=== PATIENT | female | born 1990 ===

== ENCOUNTER 2022-11-07 07:38 | Inpatient (IN) | payer OTHER ==
[2022-11-07] MEDS ORDERED: PENICILLIN G POTASSIUM 5,000,000 UNIT in DEXTROSE 5% IN WATER 100 ML IVPB STA ×2 (08:01)
[2022-11-07] MEDS ORDERED: TERBUTALINE 1 MG/ML VIAL SQ PRN (08:01)
[2022-11-07] MEDS ORDERED: LIDOCAINE 0.5% (PF) 5 MG/ML (50 ML SDV) SQ PRN (08:01)
[2022-11-07] MEDS ORDERED: LACTATED RINGERS 1,000 ML IV SCH (08:15)
--- NOTE | 2022-11-07 09:02 | P.HPOB ---
History of Present Illness H&P Date: 11/07/22 Chief Complaint: Labor This is a 32 year old woman who arrived via EMS on in advanced active labor. She has received no care. She is uncertain about estimated due date and reports having discontinued contraception in December 2021. She complains of significant pain and contractions starting 2-3 hours ago. She now is complaining of urge to push. When she is assessed in labor and delivery triage cervix is found to be 8 cm dilated and bedside ultrasound reveals fetus in the vertex presentation. Abdomen appears gravid with a fundal height of approximately 27-30 weeks gestation. She denies rupture of membranes or heavy vaginal bleeding. She is admitted in labor. Medications and Allergies Home Medications Medication Instructions Recorded Confirmed Type No Known Home Medications 11/07/22 11/07/22 History Allergies Allergy/AdvReac Type Severity Reaction Status Date / Time No Known Allergies Allergy Verified 11/07/22 07:50 Exam Intake and Output 11/06/22 11/07/22 11/07/22 22:59 06:59 14:59 Other: Weight 54.431 kg Assessment and Plan (1) Insufficient care Current Visit: Yes Status: Acute Code(s): O09.30 - SUPRVSN OF PREG W INSUFFICIENT ANTENAT CARE, UNSP TRIMESTER SNOMED Code(s): 6517106017155 (2) Spontaneous onset of labor Current Visit: Yes Status: Acute Code(s): ABT2778 - SNOMED Code(s): 29782321
--- NOTE | 2022-11-07 09:04 | P.PROBDLV ---
Vaginal Delivery Note - . Vaginal Delivery Note: Findings: Male infant in the vertex presentation with a nuchal cord 1. Apgars of 7 at 1 minute and 9 at 5 minutes weighing 2040 g, 4 lbs. 8 oz. Intact, three-vessel cord placenta with an accessory lobe. Bilateral labial abrasions. EBL 100 mL's. Delivery summary: This is a 32-year-old 1 para 0 woman with an unknown estimated due date and the last menstrual period of approximately any time between December and February 2022. She presents with spontaneous onset of regular contractions. Upon presentation to labor and delivery triage she was found to be 8 cm dilated and bedside ultrasound revealed a fetus in the vertex presentation. Assessment at the bedside was approximately 27-30 weeks gestation based on maternal uterine size. She was transported to a labor room at which time she was completely dilated and had spontaneous rupture of membranes with clear fluid. She had strong urge to push. She commenced pushing with good maternal effort. She did have deep variable decelerations during the second stage however pushed quite effectively. The pediatric team was in attendance. She did deliver to [facility] and the perineum was infused with lidocaine. With additional maternal effort the head delivered from the right occiput anterior position. There was a tight nuchal cord and the rest the infant was delivered through. The nose and mouth were bulb suctioned and the cord was clamped and cut. was taken rapidly to the nursery. Patient received Pitocin following delivery of the infant and delivered an intact, three-vessel cord placenta that appears to have an accessory lobe. The uterus was massaged and was noted to be firm. She had minimal vaginal bleeding. The vagina was inspected and bilateral labial lacerations were noted however were not actively bleeding. All counts were correct.
[2022-11-07 09:19] LABS: Basophils # (A) 0.1 k/uL (0-0.2); Basophils % (A) 0 %; Eosinophils % (A) 0 %; HCT 38.7 % (34.0-46.0); HGB 13.1 gm/dL (11.4-16.0); Lymphocytes # (A) 2.2 k/uL (1.0-4.8); Lymphocytes % (A) 12 %; MCH 34.4 pg (25.0-35.0); MCHC 33.8 g/dL (31.0-37.0); MCV 101.9 fL (80.0-100.0); Mean Platelet Volume 8.2; Monocytes # (A) 0.8 k/uL (0-1.0); Monocytes % (A) 4 %; Neutrophils # (A) 16.1 k/uL (1.3-7.7); Neutrophils % (A) 83 %; Platelet Count 318 k/uL (150-450); WBC 19.4 k/uL (3.8-10.6)
[2022-11-07] MEDS ORDERED: HYDROCORTISONE 2.5% RECTAL CREAM 30 GM TUBE RECTAL PRN (09:38)
[2022-11-07] MEDS ORDERED: BENZOCAINE/MENTHOL SPRAY 1 GM/SPRAY AEROSOL TOPICAL PRN (09:38)
[2022-11-07] MEDS ORDERED: LANOLIN CREAM 5 GM TUBE TOPICAL PRN (09:38)
[2022-11-07] MEDS ORDERED: ACETAMINOPHEN TAB 325 MG TAB PO PRN (09:38)
[2022-11-07] MEDS ORDERED: ZOLPIDEM 5 MG TAB PO PRN (09:38)
[2022-11-07] MEDS ORDERED: SIMETHICONE 80 MG CHEWABLE PO PRN (09:38)
[2022-11-07] MEDS ORDERED: IBUPROFEN 600 MG TAB PO PRN (09:38)
[2022-11-07] MEDS ORDERED: OXYTOCIN 30 UNITS/500 ML NS 30 UNIT in SALINE 1 500ML.BAG IV SCH (09:45)
[2022-11-07] MEDS ORDERED: PENICILLIN G POTASSIUM 2,500,000 UNIT in DEXTROSE 5% IN WATER 100 ML IVPB SCH ×2 (12:00)
[2022-11-07 15:23] LABS: Hepatitis B Surface Antigen Nonreactive (Nonreactive)
[2022-11-07 16:59] LABS: HIV 2 AB Non-Reactive (Non-Reactive); HIV AB P24 Non-Reactive (Non-Reactive); HIV P24 AG Non-Reactive (Non-Reactive)
[2022-11-07 17:06] LABS: Appearance,Urine Clear (Clear); Bacteria,Urine Rare /hpf; Bilirubin,Urine Negative (Negative); Blood,Urine Large (Negative); Color,Urine Light Yellow; Glucose,Urine (UA) Negative (Negative); Ketones,Urine 1+ (Negative); Leukocyte Esterase,Urine Large (Negative); Mucus,Urine Rare /hpf; Nitrite,Urine Negative (Negative); Protein,Urine Trace (Negative); RBC,Urine 140 /hpf (0-5); Specific Gravity,Urine 1.011 (1.001-1.035); Squamous Epithelial Cell,Urine 1 /hpf (0-4); Urobilinogen,Urine <2.0 mg/dL (<2.0); WBC,Urine 57 /hpf (0-5)
[2022-11-07 17:26] LABS: Amphetamine Screen,Urine Not Detected (NotDetected); Barbiturate Screen,Urine Not Detected (NotDetected); Benzodiazepines Screen,Urine Not Detected (NotDetected); Cocaine Screen,Urine Not Detected (NotDetected); Methadone Screen, Urine Not Detected (NotDetected); Opiate Screen,Urine Not Detected (NotDetected); Oxycodone Screen, Urine Not Detected (NotDetected); Phencyclidine Screen,Urine Not Detected (NotDetected); Tricyclic Antidepressant,Urine Not Detected (NotDetected); Urn Cannabinoid Scrn Detected (NotDetected)
[2022-11-07] MEDS ORDERED: NICOTINE 21MG/24HR PATCH TRANSDERM STA (20:32)
[2022-11-07] MEDS: SENNOSIDES-DOCUSATE SODIUM 1 EACH TAB PO SCH (20:51)
[2022-11-08 08:01] LABS: Basophils % (A) 0 %; Eosinophils # (A) 0.1 k/uL (0-0.7); Eosinophils % (A) 0 %; HCT 37.8 % (34.0-46.0); HGB 12.6 gm/dL (11.4-16.0); Lymphocytes # (A) 2.5 k/uL (1.0-4.8); Lymphocytes % (A) 17 %; MCH 33.9 pg (25.0-35.0); MCHC 33.3 g/dL (31.0-37.0); MCV 101.8 fL (80.0-100.0); Monocytes # (A) 0.7 k/uL (0-1.0); Monocytes % (A) 5 %; Neutrophils # (A) 11.2 k/uL (1.3-7.7); Neutrophils % (A) 77 %; Platelet Count 269 k/uL (150-450); RBC 3.72 m/uL (3.80-5.40); RDW 12.1 % (11.5-15.5); WBC 14.6 k/uL (3.8-10.6)
--- NOTE | 2022-11-08 08:29 | P.DS ---
Providers Date of admission: 11/07/22 08:12 Expected date of discharge: 11/08/22 Attending physician: Shelli Franco Primary care physician: Stated None - Discharge Diagnosis(es) (1) Insufficient care Current Visit: Yes Status: Acute (2) Spontaneous onset of labor Current Visit: Yes Status: Acute (3) Normal spontaneous vaginal delivery Current Visit: Yes Status: Acute (4) Nuchal cord Current Visit: Yes Status: Acute Hospital Course: This is a 32 year old G1 now P1 women who presented in active labor at unknown gestational age. She reported LMP in january or february of 2022. She received no care and presented by EMS with strong painful contrations starting 2 hours prior. On initial evaluation she was found to be 8 cm dilated and bedside ultrasound revealed fetus in vertex presentation. Her abdomen fundal heght was consistent with 27-30 week size. Following admission she had a rapid progression to complete dilation and had spontaneous rupture of membranes with clear fluid. There were category 3 heart tones in the second stage but she made rapid progression and delivered a liveborn male over an intact perineum. NUchal cord x 1 noted. The infant was taken immediately to the nursery for evaluation. Weight was 4 pounds 8 ounces, 2040 grams. APGARS 7 and 9. Ultimately Choi score of was approximately 36 weeks. The placenta appeared to have an accessory lobe. Her post course was unremarkable and labs all normal. SHe had decreasing lochia and minimal pain. Vital signs were stable and she was ultimatley discharged on post day 1 with routine instructions for care and follow up. Patient Condition at Discharge: Good Plan - Discharge Summary Discharge Rx Participant: Yes New Discharge Prescriptions: No Action No Known Home Medications Discharge Medication List No Known Home Medications 11/07/22 [History] Follow up Appointment(s)/Referral(s): Shelli Franco MD [STAFF PHYSICIAN] - 6 Weeks Activity/Diet/Wound Care/Special Instructions: Follow up in 6 weeks. Call the office with any heavy bleeding, severe abdominal or pelvic pain, fever > 100.4 degrees, redness or swelling of lower extremities or any post depression. No intercourse, nothing in the vagina for 6 weeks. Discharge Disposition: HOME SELF-CARE
[2022-11-08 10:22] VITALS: BP 115/68; PULSE 91; RESP 18; TEMP 98.3
[2022-11-08] MEDS: SENNOSIDES-DOCUSATE SODIUM 1 EACH TAB PO SCH (10:23)
[2022-11-09 15:36] LABS: C. trachomatis,PCR Negative (Neg,Equiv); Chlamydia trachomatis Source Urine; N. gonorrhoeae,PCR Negative (Neg,Equiv); Neisseria Source Urine
== END 2022-11-08 11:10 | disposition home or self-care (01) | DRG 805 ==
LOC: FBPOP 07:38 → 4FBP 08:12
PROVIDERS: ADMIT Obstetrics & Gynecology; ATTEND Obstetrics & Gynecology
PROC: 10E0XZZ Delivery of Products of Conception, External Approach (ICD-10-PCS; principal; 2022-11-07)
PROC: 0HQ9XZZ Repair Perineum Skin, External Approach (ICD-10-PCS; 2022-11-07)
PROC: 0UQMXZZ Repair Vulva, External Approach (ICD-10-PCS; 2022-11-07)
PROC: 4A0HXCZ Measurement of Products of Conception, Cardiac Rate, External Approach (ICD-10-PCS; 2022-11-07)
DX: O69.1XX0 Labor and delivery complicated by cord around neck, with compression, not applicable or unspecified (principal); O60.14X0 Preterm labor third trimester with preterm delivery third trimester, not applicable or unspecified; Z37.0 Single live birth; O99.324 Drug use complicating childbirth; O76 Abnormality in fetal heart rate and rhythm complicating labor and delivery; O62.3 Precipitate labor; O42.013 Preterm premature rupture of membranes, onset of labor within 24 hours of rupture, third trimester; O70.0 First degree perineal laceration during delivery; O71.82 Other specified trauma to perineum and vulva; F12.90 Cannabis use, unspecified, uncomplicated; Z3A.30 30 weeks gestation of pregnancy
CPT/HCPCS: 80306; 81001; 82947; 85025; 86762; 86780; 86850; 86900; 86901; 87340; 87390; 87491; 87591; 88307